=== PATIENT | female | born 1965 | race African-American/Black ===

== ENCOUNTER 2017-02-19 12:40 | Emergency (ER) | payer OTHER ==
[~2017-02-19] VITALS: Ht 172.7 cm; Wt 81.6 kg
[2017-02-19 12:55] VITALS: BP 121/69
--- NOTE | 2017-02-19 12:59 | Emergency Room Report ---
History of Present Illness General Chief Complaint: Upper Extremity Injury Source: Patient Present Illness HPI Patient 51-year-old female who presented after increased pain to her right elbow. The patient reported having a fall at home patient reports being left- handed dominant. She reports having pain to her right elbow. She denies any pain to her shoulder or wrist Allergies: Coded Allergies: NITROFURANTOIN (Verified Allergy, Unknown, 02/19/17) PROCHLORPERAZINE (Verified Allergy, Unknown, 02/19/17) Patient History Now: No Nursing Documentation-[facility] Past Medical History: No Stated History Physical Exam Vital Signs Date Time Temp Pulse Resp B/P (MAP) Pulse Ox O2 Delivery O2 Flow Rate FiO2 02/19/17 12:47 98.4 99 20 124/66 99 Room Air Medical Decision Making Last Vital Signs Date Time Temp Pulse Resp B/P (MAP) Pulse Ox O2 Delivery O2 Flow Rate FiO2 02/19/17 12:55 98.3 96 19 121/69 98 Room Air Kirk Gtz Feb 19, 2017 12:59
[2017-02-19] MEDS ORDERED: NORCO 5-325 TA1 EACH ORAL (13:59)
[2017-02-19] MEDS ORDERED: IBUPROFEN600 MG ORAL (13:59)
[2017-02-19 14:00] VITALS: BP 120/70
--- NOTE | 2017-02-20 11:40 | Diagnostic Imaging Report ---
Indications:PAIN Technique: Three or 4 views of the right elbow Comparison: None Findings:Positioning is very suboptimal on the oblique and AP views. Per technologist, patient unable tolerate proper positioning. On the lateral view, there is a nondisplaced radial head fracture evident. This is probably evident on the other views as well. There is a sizable joint effusion, manifested by marked elevation of the anterior and posterior fat pads. Impression:Positive for nondisplaced radial head fracture. This agrees with the discharge diagnosis in the electronic medical record Associated large joint effusion
== END 2017-02-19 14:10 | disposition home or self-care (01) ==
LOC: EMR 14:10
DX: M25.521 Pain in right elbow (principal); S52.124A Nondisplaced fracture of head of right radius, initial encounter for closed fracture; W19.XXXA Unspecified fall, initial encounter; Y93.9 Activity, unspecified; Y92.009 Unspecified place in unspecified non-institutional (private) residence as the place of occurrence of the external cause; Z88.8 Allergy status to other drugs, medicaments and biological substances
CPT/HCPCS: 29125; 99282

== ENCOUNTER 2017-02-21 17:50 | Emergency (ER) | payer OTHER ==
[~2017-02-21] VITALS: Ht 165.1 cm; Wt 68.0 kg
[~2017-02-21 17:50] MED LIST: IBUPROFEN600 MG ORAL; NORCO 5-325 TA1 EACH ORAL
[2017-02-21 19:27] VITALS: BP 145/68
[2017-02-21 19:28] VITALS: BP 145/68
--- NOTE | 2017-02-21 22:15 | Emergency Room Report ---
History of Present Illness General Chief Complaint: General Complaint Source: Patient Present Illness HPI The patient is a 51-year-old female presenting for clarification of blood work from her primary doctor. She did not bring the results in question. She states that the primary doctor advised her that she may have a bleeding disorder and anemia. She does admit to feeling tired. She has an appointment to see train operator within a week. She states she was unable to see PMD for clarification. She denies any other symptoms Allergies: Coded Allergies: NITROFURANTOIN (Verified Allergy, Unknown, 02/19/17) PROCHLORPERAZINE (Verified Allergy, Unknown, 02/19/17) Patient History Past Medical History: see triage record Pertinent Family History: none Reviewed Nursing Documentation: PMH: Agreed, PSxH: Agreed Nursing Documentation-PMH Past Medical History: No Stated History Review of Systems All Other Systems: negative except mentioned in HPI Physical Exam Vital Signs Date Time Temp Pulse Resp B/P (MAP) Pulse Ox O2 Delivery O2 Flow Rate FiO2 02/21/17 17:54 98.2 90 20 145/68 99 Room Air Sp02 EP Interpretation: reviewed, normal General Appearance: no apparent distress, alert, GCS 15, non-toxic Head: normocephalic, atraumatic Eyes: bilateral eye normal inspection, bilateral eye PERRL ENT: hearing grossly normal, normal pharynx, no angioedema, normal voice Musculoskeletal: back normal, gait/station normal, normal range of motion, other - R arm in splint/sling Neurologic: alert, oriented x3, responsive, sensory intact Psychiatric: judgement/insight normal, memory normal, mood/affect normal, no suicidal/homicidal ideation Skin: normal color, no rash, warm/dry, well hydrated Lymphatic: no adenopathy Medical Decision Making PA Attestation Dr. Rees is my supervising physician. Patient management was discussed with my supervising physician Diagnostic Impression: Primary Impression: Encounter for generalized patient complaints ER Course The patient is a 51-year-old female presenting for clarification of blood work from her primary doctor. DDx considered but not limited to: anemia, ITP, anxiety, among others PE: vitals stable. NAD A&Ox3 Skin is warm and dry. No pallor. She has appointment to see train operator within one week. She needs to keep that appointment and follow up with PMD. ER precautions given Last Vital Signs Date Time Temp Pulse Resp B/P (MAP) Pulse Ox O2 Delivery O2 Flow Rate FiO2 02/21/17 19:28 98.2 72 20 145/68 99 Room Air Status: improved Disposition: HOME, SELF-CARE Condition: Improved Referrals: [facility],REFERRING (PCP) Patient Instructions: Anemia, Nonspecific Additional Instructions: The patient needs to follow up with her primary doctor. She has several appointments scheduled with specialists including orthopedics, hematology, and ENT. ER precautions are given GERMAN AKHTAR Feb 21, 2017 22:15
== END 2017-02-21 18:40 | disposition home or self-care (01) ==
LOC: EMR 18:26
DX: R53.83 Other fatigue (principal); Z88.8 Allergy status to other drugs, medicaments and biological substances
CPT/HCPCS: 99284

== ENCOUNTER 2017-02-26 17:07 | Emergency (ER) | payer OTHER ==
[~2017-02-26] VITALS: Ht 175.3 cm; Wt 83.9 kg
--- NOTE | 2017-02-26 18:14 | Emergency Room Report ---
History of Present Illness General Chief Complaint: Upper Extremity Injury Source: Patient (Bernarda Rapp) Present Illness HPI 51 YO Female presents to the ED c/o getting her splint wet when trying to take a shower, now it is loose and feels like it is going to fall off. denies new trauma or fall. Denies fevers, chills, erythema or significant uncharacteristic pain. Pt report pain is 4/10 in severity at this time. Denies numbness tingling or loss of sensation or gross motor movements of the extremities, incontinence of bowel or bladder. Denies CP, Palpitations, LOC, AMS, dizziness, Changes in Vision, Sensation, paresthesias, or a sudden severe headache. Pt has not been able to have orthopedic follow up appt. yet, she is still waiting on the referral from her PMD. (Bernarda Rapp) Allergies: Coded Allergies: NITROFURANTOIN (Verified Allergy, Unknown, 02/19/17) PROCHLORPERAZINE (Verified Allergy, Unknown, 02/19/17) Patient History Past Medical History: see triage record Past Surgical History: none Pertinent Family History: none Now: No Reviewed Nursing Documentation: PMH: Agreed, PSxH: Agreed (Bernarda Rapp) Nursing Documentation-PMH Past Medical History: No Stated History (Bernarda Rapp) Review of Systems All Other Systems: negative except mentioned in HPI (Bernarda Rapp) Physical Exam Vital Signs Date Time Temp Pulse Resp B/P (MAP) Pulse Ox O2 Delivery O2 Flow Rate FiO2 02/26/17 17:12 98.2 95 18 114/62 98 Room Air Sp02 EP Interpretation: reviewed, normal General Appearance: no apparent distress, alert, GCS 15, non-toxic Head: normocephalic, atraumatic Eyes: bilateral eye normal inspection, bilateral eye PERRL ENT: hearing grossly normal, normal voice Neck: full range of motion Respiratory: lungs clear, normal breath sounds, speaking full sentences Cardiovascular #1: regular rate, rhythm, normal capillary refill Musculoskeletal: back normal, gait/station normal, normal range of motion, non- tender, other - right long arm posterior splint is in pl Neurologic: alert, oriented x3, responsive, motor strength/tone normal, sensory intact, speech normal Psychiatric: judgement/insight normal, memory normal, mood/affect normal Skin: normal color, no rash, warm/dry, well hydrated (Bernarda Rapp) Medical Decision Making PA Attestation Dr. Crandall is my supervising Physician whom patient management has been discussed with. (Bernarda Rapp) Diagnostic Impression: Primary Impression: Radial head fracture, closed Qualified Codes: S52.124D - Nondisplaced fracture of head of right radius, subsequent encounter for closed fracture with routine healing ER Course 51 YO Female presents to the ED c/o getting her splint wet when trying to take a shower, now it is loose and feels like it is going to fall off. denies new trauma or fall. Denies fevers, chills, erythema or significant uncharacteristic pain. Pt report pain is 4/10 in severity at this time. Denies numbness tingling or loss of sensation or gross motor movements of the extremities, incontinence of bowel or bladder. Denies CP, Palpitations, LOC, AMS, dizziness, Changes in Vision, Sensation, paresthesias, or a sudden severe headache. Pt has not been able to have orthopedic follow up appt. yet, she is still waiting on the referral from her PMD. Ddx considered but are not limited to Fracture, dislocation, contusion, compartment syndrome, neurovascular compromise just to name a few. Vital signs: are WNL, pt. is afebrile H&PE are most consistent with previouslyl evaluated right radial head fracture with need to re-evaluate splint. no new trauma. ORDERS: - none required at this time. ED INTERVENTIONS: - Right long arm posterior Splint applied by human performance technologist. Pt. remains neurovascularly intact. -Pt. placed back into right arm sling, and remains neurovascularly intact. DISCHARGE: At this time pt. is stable for d/c to home. Will provide printed patient care instructions, and any necessary prescriptions. Care plan and follow up instructions have been discussed with the patient prior to discharge. (Bernarda Rapp) ER Course Procedure: XRAY Elbow Min 3v R Indications:PAIN Technique: Three or 4 views of the right elbow Comparison: None Findings:Positioning is very suboptimal on the oblique and AP views. Per technologist, patient unable tolerate proper positioning. On the lateral view, there is a nondisplaced radial head fracture evident. This is probably evident on the other views as well. There is a sizable joint effusion, manifested by marked elevation of the anterior and posterior fat pads. Impression:Positive for nondisplaced radial head fracture. This agrees with the discharge diagnosis in the electronic medical record Associated large joint effusion Electronically signed by Dolores Crandall MD (Dolores Crandall M.D.) Last Vital Signs Date Time Temp Pulse Resp B/P (MAP) Pulse Ox O2 Delivery O2 Flow Rate FiO2 02/26/17 17:12 98.2 95 18 114/62 98 Room Air (Bernarda Rapp) Disposition: HOME, SELF-CARE Condition: Stable Referrals: [facility],REFERRING (PCP) Patient Instructions: Elbow Fracture Additional Instructions: Take previously prescribed medications as directed. Follow up with an Health Informatics Specialist in 3-5 days, even if your symptoms have resolved. Return sooner to ED if new symptoms occur, or current symptoms become worse. - Please note that this Emergency Department Report was dictated using [employer] software quality engineer technology software, occasionally this can lead to erroneous entry secondary to interpretation by the dictation equipment. Bernarda Rapp Feb 26, 2017 18:14 Dolores Crandall M.D. Feb 27, 2017 14:46
[2017-02-26 18:39] VITALS: BP 131/91
== END 2017-02-26 18:45 | disposition home or self-care (01) ==
LOC: EMR 17:47
DX: S52.124D Nondisplaced fracture of head of right radius, subsequent encounter for closed fracture with routine healing (principal); W19.XXXD Unspecified fall, subsequent encounter
CPT/HCPCS: 99283

== ENCOUNTER 2017-12-24 23:55 | Emergency (ER) | payer OTHER ==
[~2017-12-24] VITALS: Ht 172.7 cm; Wt 81.6 kg
[2017-12-25] MEDS ORDERED: IBUPROFEN600 MG ORAL (01:07)
--- NOTE | 2017-12-25 01:08 | Emergency Room Report ---
History of Present Illness General Chief Complaint: Lower Extremity Injury Source: Patient Present Illness HPI Is a 52-year-old female presents with right knee pain. Injury occurred over 6 months ago when she was on the treadmill stair,. She felt pain to the right knee and it swell up the next day. Intermittently been swollen. It was painful yesterday but she took ibuprofen got better. She can't bend her knee fully. No other new trauma. No fever chills but no nausea no vomiting. No redness. Right now minimal pain. Allergies: Coded Allergies: NITROFURANTOIN (Verified Allergy, Unknown, 12/25/17) PROCHLORPERAZINE (Verified Allergy, Unknown, 12/25/17) Patient History Past Medical History: see triage record, old chart reviewed Past Surgical History: none Pertinent Family History: none Social History: Denies: smoking Last Menstrual Period: n/a Now: No Immunizations: other Reviewed Nursing Documentation: PMH: Agreed; PSxH: Agreed Nursing Documentation-PMH Past Medical History: No Stated History Review of Systems Eye: Denies: eye pain, blurred vision ENT: Denies: ear pain, nose congestion, throat swelling Respiratory: Denies: cough, shortness of breath Cardiovascular: Denies: chest pain, palpitations Gastrointestinal: Denies: abdominal pain, diarrhea, nausea, vomiting Musculoskeletal: Reports: joint swelling; Denies: back pain, joint pain Skin: Denies: rash Neurological: Denies: headache, numbness Endocrine: Denies: increased thirst, increased urine Hematologic/Lymphatic: Denies: easy bruising All Other Systems: negative except mentioned in HPI Physical Exam Vital Signs Date Time Temp Pulse Resp B/P (MAP) Pulse Ox O2 Delivery O2 Flow Rate FiO2 12/25/17 00:00 98.0 84 16 116/74 98 Room Air 98.1 vitals normal Sp02 EP Interpretation: reviewed, normal General Appearance: well appearing, no apparent distress, alert Head: normocephalic, atraumatic Eyes: bilateral eye PERRL, bilateral eye EOMI ENT: hearing grossly normal, normal pharynx Neck: full range of motion, supple, no meningismus Respiratory: chest non-tender, lungs clear, normal breath sounds Cardiovascular #1: regular rate, rhythm, no murmur Gastrointestinal: normal bowel sounds, non tender, no mass, no organomegaly, no bruit, non-distended Musculoskeletal: back normal, gait/station normal, normal range of motion, other - Right knee: There is minimal tenderness to the lateral collateral ligament. Mild effusion. Knee is stable. Sensation normal. Calf normal. Psychiatric: mood/affect normal Skin: warm/dry Procedures Splinting Splinting : Consent: Verbal Location: Right knee Pre-Made Type: NEAL wrap Pre-Proc Neuro Vasc Exam: normal Post-Proc Neuro Vasc Exam: normal Patient Tolerated: Well Complications: None Medical Decision Making Diagnostic Impression: Primary Impression: Sprain of knee, lateral collateral ligament Qualified Codes: S83.421A - Sprain of lateral collateral ligament of right knee, initial encounter ER Course Patient presents with right knee edema and pain. Most likely injury to the lateral collateral ligament. No evidence of septic joint, dislocation or infection. We'll discharge home. Other X-Ray Diagnostic Results Other X-Ray Diagnostic Results : X-Ray ordered: Right knee # of Views/Limited Vs Complete: 4 View Indication: Pain EP Interpretation: Yes Interpretation: no dislocation, no soft tissue swelling, no fractures Impression: No acute disease Electronically Signed by: Suman Martinez MD Last Vital Signs Date Time Temp Pulse Resp B/P (MAP) Pulse Ox O2 Delivery O2 Flow Rate FiO2 12/25/17 00:00 98.0 84 16 116/74 98 Room Air 98.1 Status: improved Disposition: HOME, SELF-CARE Condition: Stable Scripts Ibuprofen* (MOTRIN*) 600 Mg Tablet 600 MG ORAL THREE TIMES A DAY, #30 TAB 0 Refills Prov: SUMAN MARTINEZ M.D. 12/25/17 Patient Instructions: Knee Sprain Additional Instructions: Follow-up with in 7 days. You may need an MRI if not better. Return of worse. SUMAN MARTINEZ M.D. Dec 25, 2017 01:08
[2017-12-25 01:11] VITALS: BP 0/0
--- NOTE | 2017-12-25 10:19 | Diagnostic Imaging Report ---
Indications: Right knee pain for one week after twisting injury Technique: Three views of the right knee Comparison: None Findings: Small lucency in the medial condyle could indicate a small osteochondral defect. No definite osseous fragment demonstrated. No other evidence of acute fracture or dislocation. The joint spaces are preserved. There is equivocally a small suprapatellar effusion. Impression: Small lucency in the medial condyle could indicate a small osteochondral fracture. Consider further evaluation with MRI. This was discussed by phone with Dr. Gtz in the emergency room at the time of interpretation No other evidence of acute bony trauma
== END 2017-12-25 01:11 | disposition home or self-care (01) ==
LOC: EMR 12-25 01:07
DX: S83.421A Sprain of lateral collateral ligament of right knee, initial encounter (principal); Y93.A1 Activity, exercise machines primarily for cardiorespiratory conditioning; Y92.9 Unspecified place or not applicable
CPT/HCPCS: 99283

== ENCOUNTER 2018-04-16 22:05 | Emergency (ER) | payer OTHER ==
[~2018-04-16] VITALS: Ht 175.3 cm; Wt 83.9 kg
[2018-04-16 22:25] VITALS: BP 137/90
[2018-04-16] MEDS ORDERED: IBUPROFEN600 MG ORAL (23:50)
[2018-04-16] MEDS ORDERED: PREDNISONE20 MG ORAL (23:50)
--- NOTE | 2018-04-16 23:51 | Emergency Room Report ---
History of Present Illness General Chief Complaint: Pain Source: Patient Present Illness HPI Is a 52-year-old female with no past medical issue. She presents with chief complaint of 4 days history of left arm pain. She woke up one day and it was achy. This been persistent. Sometimes get numbness. Worse when she moves certain way. No neck pain. No chest pain. Denies any other complaint. Pain is 7 out of 10. Allergies: Coded Allergies: NITROFURANTOIN (Verified Allergy, Unknown, 12/25/17) PROCHLORPERAZINE (Verified Allergy, Unknown, 12/25/17) Patient History Past Medical History: see triage record, old chart reviewed Past Surgical History: none Pertinent Family History: none Social History: Denies: smoking Last Menstrual Period: 03/19/18 Now: No : 3 Para: 2 Immunizations: other Reviewed Nursing Documentation: PMH: Agreed; PSxH: Agreed Nursing Documentation-PMH Past Medical History: No Stated History Review of Systems Eye: Denies: eye pain, blurred vision ENT: Denies: ear pain, nose congestion, throat swelling Respiratory: Denies: cough, shortness of breath Cardiovascular: Denies: chest pain, palpitations Gastrointestinal: Denies: abdominal pain, diarrhea, nausea, vomiting Musculoskeletal: Reports: muscle pain; Denies: back pain, joint pain Skin: Denies: rash Neurological: Denies: headache, numbness Endocrine: Denies: increased thirst, increased urine Hematologic/Lymphatic: Denies: easy bruising All Other Systems: negative except mentioned in HPI Physical Exam Vital Signs Date Time Temp Pulse Resp B/P (MAP) Pulse Ox O2 Delivery O2 Flow Rate FiO2 04/16/18 22:08 98.2 100 16 137/90 95 Room Air vitals normal Sp02 EP Interpretation: reviewed, normal General Appearance: well appearing, no apparent distress, alert Head: normocephalic, atraumatic Eyes: bilateral eye PERRL, bilateral eye EOMI ENT: hearing grossly normal, normal pharynx Neck: full range of motion, supple, no meningismus Respiratory: chest non-tender, lungs clear, normal breath sounds Cardiovascular #1: regular rate, rhythm, no murmur Gastrointestinal: normal bowel sounds, non tender, no mass, no organomegaly, no bruit, non-distended Musculoskeletal: back normal, gait/station normal, normal range of motion Psychiatric: mood/affect normal Skin: warm/dry Medical Decision Making Diagnostic Impression: Primary Impression: Arm pain, left ER Course Patient with left arm pain. This most likely a radicular pain. No evidence of DVT. No evidence of anginal equivalent Pain. We'll discharge home. Last Vital Signs Date Time Temp Pulse Resp B/P (MAP) Pulse Ox O2 Delivery O2 Flow Rate FiO2 04/16/18 22:08 98.2 100 16 137/90 95 Room Air Status: improved Disposition: HOME, SELF-CARE Condition: Stable Scripts Prednisone* (PREDNISONE*) 20 Mg Tablet 40 MG ORAL DAILY, #10 TAB Prov: Suman Martinez MD 04/16/18 Ibuprofen* (MOTRIN*) 600 Mg Tablet 600 MG ORAL THREE TIMES A DAY, #30 TAB 0 Refills Prov: Suman Martinez MD 04/16/18 Referrals: [facility],REFERRING (PCP) Additional Instructions: Follow-up with your doctor in 7 days. You may need an MRI. Return if symptom worsen. Suman Martinez MD Apr 16, 2018 23:51
[2018-04-17] VITALS: BP 124/86
[2018-04-17] MEDS ORDERED: Norco 5mg/325mg tab ORAL ONE
== END 2018-04-17 00:03 | disposition home or self-care (01) ==
LOC: EMR 22:28
DX: M79.602 Pain in left arm (principal); M79.10 Myalgia, unspecified site; R51 Headache; Z88.1 Allergy status to other antibiotic agents; Z88.8 Allergy status to other drugs, medicaments and biological substances
CPT/HCPCS: 84484; 99282

== ENCOUNTER 2019-01-31 21:40 | Emergency (ER) | payer OTHER ==
[~2019-01-31] VITALS: Ht 175.3 cm; Wt 86.2 kg
[~2019-01-31 21:40] MED LIST changes: +PREDNISONE20 MG ORAL
--- NOTE | 2019-01-31 22:00 | NUR ---
ED Nurse Note: Recieved pt from home with c/o possible bug bite to left arm with itching, no deformity noted, pt states for last 2 days, denies fevers, or any other complaints or disocomforts.
[2019-01-31 22:35] VITALS: BP 111/69
[2019-01-31] MEDS ORDERED: BENADRYL25 MG ORAL (22:44)
[2019-01-31] MEDS ORDERED: HYDROCORTISONE-30 GM TOPIC (22:44)
[2019-01-31 22:45] VITALS: BP 101/63
--- NOTE | 2019-01-31 22:45 | NUR ---
ER DISCHARGE NOTE: Patient is cleared to be discharged per ERMD, pt is aox4, on room air, with stable vital signs. pt was given dc and prescription instructions, pt was able to verbalize understanding, pt id band removed without complications. pt is able to ambulate with steady gait. pt took all belongings.
--- NOTE | 2019-01-31 22:46 | Emergency Room Report ---
History of Present Illness General Chief Complaint: Skin Rash/Abscess Source: Patient, Medical Record Present Illness HPI She is a 53-year-old female presents for increased left upper extremity itching for the past 2 days. Patient reports having a possible insect bite. She denies any pain. She reports having increased swelling and itchiness. Allergies: Coded Allergies: NITROFURANTOIN (Verified Allergy, Unknown, 12/25/17) PROCHLORPERAZINE (Verified Allergy, Unknown, 12/25/17) Patient History Past Medical History: see triage record Now: No Reviewed Nursing Documentation: PMH: Agreed; PSxH: Agreed Nursing Documentation-PMH Past Medical History: No History, Except For Review of Systems All Other Systems: negative except mentioned in HPI Physical Exam Vital Signs Date Time Temp Pulse Resp B/P (MAP) Pulse Ox O2 Delivery O2 Flow Rate FiO2 01/31/19 21:50 98.6 105 18 101/63 (76) 95 Room Air General Appearance: well appearing, no apparent distress, alert, GCS 15 Head: normocephalic, atraumatic ENT: hearing grossly normal, normal voice Neck: full range of motion, supple Respiratory: no respiratory distress, speaking full sentences Cardiovascular #1: normal inspection Gastrointestinal: normal inspection, non tender, soft Musculoskeletal: normal inspection Neurologic: normal inspection, alert, oriented x3, responsive, normal gait Psychiatric: mood/affect normal Skin: other - left upper extremity swelling to upper arm, no fluctuance Medical Decision Making Diagnostic Impression: Primary Impression: Insect bite ER Course Patient presented for skin rash. Differential diagnosis include was not limited to insect bite, vasculitis, contact dermatitis among others. Patient has a benign exam and does not appear to require any imaging or laboratory testing at this time. Patient appears to have a rash consistent with insect bites. Patient given medication prescription for symptomatic treatment. Patient was advised to follow-up with primary care physician for recheck. She is to return if worse. Last Vital Signs Date Time Temp Pulse Resp B/P (MAP) Pulse Ox O2 Delivery O2 Flow Rate FiO2 01/31/19 21:50 98.6 105 18 101/63 (76) 95 Room Air Status: improved Disposition: HOME, SELF-CARE Condition: Stable Scripts Diphenhydramine Hcl* (BENADRYL*) 25 Mg Capsule 25 MG ORAL Q6H PRN for Itching, #30 CAP Prov: Kirk Gtz MD 01/31/19 Hydrocortisone/Aloe Vera 1%* (HYDROCORTISONE-ALOE 1% CREAM*) Y Cr 1 APPLIC TOPIC Q6H PRN for Itching, #30 GM Prov: Kirk Gtz MD 01/31/19 Patient Instructions: Kirk Garcia MD Jan 31, 2019 22:46
== END 2019-01-31 22:50 | disposition home or self-care (01) ==
LOC: EMR 22:50
DX: S40.862A Insect bite (nonvenomous) of left upper arm, initial encounter (principal); Z88.8 Allergy status to other drugs, medicaments and biological substances; W57.XXXA Bitten or stung by nonvenomous insect and other nonvenomous arthropods, initial encounter; Y92.9 Unspecified place or not applicable
CPT/HCPCS: 99282

== ENCOUNTER 2019-06-03 21:09 | Emergency (ER) | payer MEDICAID, OTHER ==
[~2019-06-03] VITALS: Ht 175.3 cm; Wt 86.2 kg
[~2019-06-03 21:09] MED LIST changes: +BENADRYL25 MG ORAL; +HYDROCORTISONE-30 GM TOPIC
[2019-06-03 21:20] VITALS: BP 104/63
[2019-06-03] MEDS ORDERED: IBUPROFEN600 MG ORAL ×2 (21:23→23:56)
--- NOTE | 2019-06-03 22:08 | Emergency Room Report ---
History of Present Illness General Chief Complaint: Fever Source: Patient Present Illness HPI This is a 53-year-old female with no past medical history. She presents with complaint of fever. Onset for last 3 days. No cough or congestion. No nausea no vomiting. Just diffuse body pain and weakness. No sick contact. Nothing made it better. Exertion made it worse. Allergies: Coded Allergies: NITROFURANTOIN (Verified Allergy, Unknown, 12/25/17) PROCHLORPERAZINE (Verified Allergy, Unknown, 12/25/17) Patient History Past Medical History: see triage record, old chart reviewed Past Surgical History: none Pertinent Family History: none Social History: Denies: smoking Now: No Immunizations: other Reviewed Nursing Documentation: PMH: Agreed; PSxH: Agreed Nursing Documentation-PMH Past Medical History: No History, Except For Review of Systems Constitutional: Reports: chills, fever, malaise Eye: Denies: eye pain, blurred vision ENT: Denies: ear pain, nose congestion, throat swelling Respiratory: Denies: cough, shortness of breath Cardiovascular: Denies: chest pain, palpitations Gastrointestinal: Denies: abdominal pain, diarrhea, nausea, vomiting Musculoskeletal: Denies: back pain, joint pain Skin: Denies: rash Neurological: Denies: headache, numbness Endocrine: Denies: increased thirst, increased urine Hematologic/Lymphatic: Denies: easy bruising All Other Systems: negative except mentioned in HPI Physical Exam Vital Signs Date Time Temp Pulse Resp B/P (MAP) Pulse Ox O2 Delivery O2 Flow Rate FiO2 06/03/19 21:19 102.9 120 26 104/63 (77) 94 Room Air Vitals with fever Sp02 EP Interpretation: reviewed, normal General Appearance: no apparent distress, alert, other - Ill-appearing Head: normocephalic, atraumatic Eyes: bilateral eye PERRL, bilateral eye EOMI ENT: hearing grossly normal, normal pharynx Neck: full range of motion, supple, no meningismus Respiratory: chest non-tender, lungs clear, normal breath sounds Cardiovascular #1: regular rate, rhythm, no murmur Gastrointestinal: normal bowel sounds, non tender, no mass, no organomegaly, no bruit, non-distended Musculoskeletal: back normal, normal range of motion, gait/station normal Psychiatric: mood/affect normal Medical Decision Making Diagnostic Impression: Primary Impression: Influenza ER Course Patient presents with flulike illness. Symptoms been ongoing for 3 days. Tamiflu will be equivocal here. No evidence of meningitis, sepsis, pneumonia to name a few. Will discharge home. Last Vital Signs Date Time Temp Pulse Resp B/P (MAP) Pulse Ox O2 Delivery O2 Flow Rate FiO2 06/03/19 21:20 102.9 120 26 104/63 94 Room Air Status: improved Disposition: HOME, SELF-CARE Condition: Stable Scripts Oseltamivir Phosphate (Tamiflu) 75 Mg Capsule 75 MG ORAL TWICE A DAY, #10 CAP Prov: Suman Martinez MD 06/03/19 Ibuprofen* (MOTRIN*) 600 Mg Tablet 600 MG ORAL THREE TIMES A DAY, #30 TAB 0 Refills Prov: Suman Martinez MD 06/03/19 Additional Instructions: Rest. Increase fluids. Follow-up with your doctor in 7 days. Return if worse. Suman Martinez MD Jun 03, 2019 22:08
[2019-06-03] MEDS ORDERED: Acetaminophen 500mg (ES) tab ORAL ONE (22:15)
[2019-06-03] MEDS ORDERED: Ketorolac 30mg Inj IV ONE (22:15)
[2019-06-03 22:59] LABS: HEMATOCRIT 43.1 % (37.0-47.0); MEAN CORPUSCULAR VOLUME 91 FL (80-99); PLATELET COUNT 80 K/UL (150-450); RED BLOOD COUNT 4.71 M/UL (4.20-5.40); RED CELL DISTRIBUTION WIDTH 12.4 % (11.6-14.8)
[2019-06-03 23:00] LABS: APPEARANCE,URINE CLEAR; BILIRUBIN, URINE NEGATIVE (NEGATIVE); COLOR,URINE PALE YELLOW; GLUCOSE, URINE (UA) NEGATIVE (NEGATIVE); KETONES,URINE 2+ (NEGATIVE); LEUKOCYTE ESTERASE ,URINE NEGATIVE (NEGATIVE); NITRITE,URINE NEGATIVE (NEGATIVE); PH,URINE 6 (4.5-8.0); PROTEIN,URINE NEGATIVE (NEGATIVE); UROBILINOGEN,URINE NORMAL MG/DL (0.0-1.0)
[2019-06-03 23:26] LABS: ANION GAP 10 mmol/L (5-15); BLOOD UREA NITROGEN 13 mg/dL (7-18); CALCIUM 8.7 MG/DL (8.5-10.1); CARBON DIOXIDE 26 MMOL/L (21-32); CHLORIDE 105 MMOL/L (98-107); CREATININE 1.1 MG/DL (0.55-1.30); POTASSIUM 4.6 MMOL/L (3.5-5.1); SODIUM 141 MMOL/L (136-145)
[2019-06-03] MEDS ORDERED: TAMIFLU75 MG ORAL (23:56)
[2019-06-04 00:10] VITALS: BP 109/63
== END 2019-06-04 00:10 | disposition home or self-care (01) ==
LOC: EMR 21:39
DX: J11.1 Influenza due to unidentified influenza virus with other respiratory manifestations (principal); Z88.8 Allergy status to other drugs, medicaments and biological substances
CPT/HCPCS: 36415; 80048; 81001; 81025; 85007; 85025; 96361; 96374; J1885; J7030; Z7502; 99284